=== PATIENT | female | born 1965 | race Caucasian/White ===

== ENCOUNTER 2017-08-11 16:37 | Emergency (ER) | payer BC ==
[~2017-08-11] VITALS: Ht 157.5 cm; Wt 122.9 kg
[2017-08-11 16:43] VITALS: TEMP 37.3; Ht 157.5 cm; Wt 122.9 kg
[2017-08-11 17:36] LABS: BASO % 0.3 %; BASO ABS # 0.03 K/uL (0-0.2); COMPLETE YES; EOS % 2.6 %; HEMATOCRIT 37.2 % (37-47); IG% 0.2 %; LYMPH % 25.9 %; MEAN CELL VOLUME 84.5 fL (80-100); MEAN CORPUSCULAR HEMOGLOBIN 29.3 pg (25-34); MEAN CORPUSCULAR HGB CONC 34.7 g/dl (32-36); MEAN PLATELET VOLUME 9.7 fL (7.4-10.4); MONO % 6.9 %; NEUT % 64.1 %; PLATELET COUNT 252 K/uL (130-400); WHITE BLOOD COUNT 8.88 K/uL (4.8-10.8)
[2017-08-11] MEDS ORDERED: DICY20TA35 PO (17:55)
[2017-08-11] MEDS ORDERED: NXM/40 PO (17:55)
[2017-08-11] MEDS ORDERED: HYDR25TA4 PO (17:55)
[2017-08-11] MEDS ORDERED: ROSU20TA PO (17:55)
[2017-08-11] MEDS ORDERED: LOSA50TA6 PO (17:55)
[2017-08-11] MEDS ORDERED: LEVO5TAB2 PO (17:55)
[2017-08-11] MEDS ORDERED: DIPH25CA65 PO (17:55)
[2017-08-11] MEDS ORDERED: GABA1CAP PO (17:55)
[2017-08-11 17:57] LABS: BUN/CREATININE RATIO 22.1 (10-20); CREATININE 0.73 mg/dl (0.60-1.20); POTASSIUM 3.1 mmol/L (3.5-5.1)
[2017-08-11 19:06] VITALS: BP 168/92; PULSE 95; O2SAT 100
--- NOTE | 2017-08-11 19:06 | DIAGNOSTIC IMAGING REPORT ---
R FOOT MIN 3 VIEWS ROUTINE CLINICAL HISTORY: Right foot pain. Discharge. POSTOP. COMPARISON: None. DISCUSSION: There is a plantar calcaneal spur. There are postsurgical changes involving the second metatarsal neck. 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 There is no air within soft tissues. There are no conventional radiographic findings to indicate acute osteomyelitis. There are no acute fractures. There are degenerative changes most pronounced within the midfoot. IMPRESSION: 1. Postsurgical changes involving the second metatarsal neck. A single screw is visualized 2. No conventional radiographic evidence of acute osteomyelitis 3. No acute fractures Electronically signed by: Femi Dupont M.D. 08/11/2017 7:05 PM Dictated Date/Time: 08/11/2017 7:03 PM
[2017-08-11] MEDS ORDERED: LEVO-366 PO (20:13)
[2017-08-11] MEDS ORDERED: LEVOFLOXACIN 250 MG TAB PO ONE (20:15)
--- NOTE | 2017-08-11 23:13 | EMERGENCY ROOM VISIT NOTE ---
History Report prepared by Laurie: Stefany Moss Under the Supervision of: Dr. José Ansari D.O. First contact with patient: 16:56 Chief Complaint: WOUND DEHISCENCE Stated Complaint: RT FOOT PAIN AND DISCHARGE, POST OP Nursing Triage Summary: Pt reports 2 issues. Left index finger, "I have this bump that's been there 2 months. it keeps scabbing at the cuticle and there is a line that goes up the finger nail". Also reports right foot surgery 9 weeks ago. "it's infected and it continues to get worse."Reports pain, redness and swelling with changing color to toes, yellow/greenish drainage. Has appointment with surgeon on Tuesday. Pt has Neurotransmitter in back. has card with her History of Present Illness The patient is a 52 year old female who presents to the Emergency Room with complaints of a wound dehiscence of her right foot. The patient had surgery on her right foot 9 weeks ago. She had a pin placed and a ligament repaired. She had the surgery done in [place] and is in the area visiting family. She states that the wound has been healing well. About 3-4 days ago it started draining a little more than usual. She reports greenish-yellow discharge. She reports increased redness and swelling. The patient states that she cant bend her toes. She has been taking Tylenol and ibuprofen for pain. She rates her pain as a 5/ 10 in severity. Any pressure on her foot exacerbates her pain. Pt denies headache, change in vision, fevers, chest pain, shortness of breath, nausea, vomiting, diarrhea, pain with urination, and melena. Source of History: patient Onset: 3-4 days ago Position: foot (right) Symptom Intensity: 5/10 Quality: other (wound dehiscence) Timing: worsening Modifying Factors (Worsening): other (pressure on foot) Modifying Factors (Relieving): tylenol, ibuprofen Associated Symptoms: No fevers, No headache, No chest pain, No SOB, No nausea, No vomiting, No melena, No diarrhea, No urinary symptoms Review of Systems See HPI for pertinent positives & negatives. A total of 10 systems reviewed and were otherwise negative. Past Medical & Surgical Medical Problems: (1) Hypertension (2) Kidney stones Family History Cancer Diabetes mellitus FH: gallbladder disease FH: lung disease Heart disease Hypertension Kidney disease Kidney stones Seizures Social History Smoking Status: Never Smoker Smokeless Tobacco Use: No Alcohol Use: none Marital Status: Housing Status: lives with family Current/Historical Medications Scheduled Dicyclomine Hcl (Bentyl), 1 TAB PO QID Diphenhydramine Hcl (Benadryl Allergy), 2 CAP PO HS Esomeprazole Magnesium (Nexium), 40 MG PO BID Gabapentin (Neurontin), 200 MG PO BID Hydrochlorothiazide (Hctz), 25 MG PO DAILY Levocetirizine Dihydrochloride (Xyzal), 1 TAB PO DAILY Levofloxacin (Levaquin), 500 MG PO DAILY Losartan Potassium (Cozaar), 50 MG PO DAILY Rosuvastatin Calcium (Crestor), 20 MG PO DAILY Allergies Coded Allergies: Azithromycin (Unverified Allergy, Severe, HIVES, 08/11/17) Cephalosporins (Unverified Allergy, Severe, HIVES, 08/11/17) Penicillins (Unverified Allergy, Severe, HIVES, 08/11/17) Sulfa Antibiotics (Unverified Allergy, Severe, HIVES, 08/11/17) Sulfamethoxazole w/Trimethoprim (Unverified Allergy, Severe, ANAPHYLAXIS, 08/11/17) Physical Exam Vital Signs Date Time Temp Pulse Resp B/P (MAP) Pulse Ox O2 Delivery O2 Flow Rate FiO2 08/11/17 19:06 95 18 168/92 100 Room Air 08/11/17 16:43 37.3 100 20 166/101 99 Room Air Physical Exam GENERAL: Sitting up in bed, alert, well appearing, well nourished, no distress, non-toxic EYE EXAM: normal conjunctiva. OROPHARYNX: no exudate, no erythema, lips, buccal mucosa, and tongue normal and mucous membranes are moist NECK: supple, no nuchal rigidity, no adenopathy, non-tender LUNGS: Clear to auscultation. Normal chest wall mechanics HEART: no murmurs, S1 normal and S2 normal ABDOMEN: abdomen soft, non-tender, normo-active bowel sounds, no masses, no rebound or guarding. BACK: Back is symmetrical on inspection and there is no deformity, no midline tenderness, no CVA tenderness. SKIN: no rashes and no bruising UPPER EXTREMITIES: upper extremities are grossly normal. LOWER EXTREMITIES: No pitting edema. Right foot second MTP with 1.5cm area by 0.5cm area of open wound without drainage, no surrounding induration or erythema. Calves equal bilaterally. NEURO EXAM: Normal sensorium, cranial nerves II-XII grossly intact, normal speech, no gross weakness of arms, no gross weakness of legs. Medical Decision & Procedures ER Provider Diagnostic Interpretation: Radiology results as stated below per my review and the radiologist's interpretation: R FOOT MIN 3 VIEWS ROUTINE CLINICAL HISTORY: Right foot pain. Discharge. POSTOP. COMPARISON: None. DISCUSSION: There is a plantar calcaneal spur. There are postsurgical changes involving the second metatarsal neck. 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 There is no air within soft tissues. There are no conventional radiographic findings to indicate acute osteomyelitis. There are no acute fractures. There are degenerative changes most pronounced within the midfoot. IMPRESSION: 1. Postsurgical changes involving the second metatarsal neck. A single screw is visualized 2. No conventional radiographic evidence of acute osteomyelitis 3. No acute fractures Electronically signed by: Femi Dupont M.D. 08/11/2017 7:05 PM Dictated Date/Time: 08/11/2017 7:03 PM Laboratory Results 08/11/17 17:20 Red Blood Count 4.40, Mean Corpuscular Volume 84.5, Mean Corpuscular Hemoglobin 29.3, Mean Corpuscular Hemoglobin Concent 34.7, Mean Platelet Volume 9.7, Neutrophils (%) (Auto) 64.1, Lymphocytes (%) (Auto) 25.9, Monocytes (%) (Auto) 6.9, Eosinophils (%) (Auto) 2.6, Basophils (%) (Auto) 0.3, Neutrophils # (Auto) 5.69, Lymphocytes # (Auto) 2.30, Monocytes # (Auto) 0.61, Eosinophils # (Auto) 0.23, Basophils # (Auto) 0.03 08/11/17 17:20 Test 08/11/17 17:20 White Blood Count 8.88 K/uL (4.8-10.8) Red Blood Count 4.40 M/uL (4.2-5.4) Hemoglobin 12.9 g/dL (12.0-16.0) Hematocrit 37.2 % (37-47) Mean Corpuscular Volume 84.5 fL (80-100) Mean Corpuscular Hemoglobin 29.3 pg (25-34) Mean Corpuscular Hemoglobin Concent 34.7 g/dl (32-36) Platelet Count 252 K/uL (130-400) Mean Platelet Volume 9.7 fL (7.4-10.4) Neutrophils (%) (Auto) 64.1 % Lymphocytes (%) (Auto) 25.9 % Monocytes (%) (Auto) 6.9 % Eosinophils (%) (Auto) 2.6 % Basophils (%) (Auto) 0.3 % Neutrophils # (Auto) 5.69 K/uL (1.4-6.5) Lymphocytes # (Auto) 2.30 K/uL (1.2-3.4) Monocytes # (Auto) 0.61 K/uL (0.11-0.59) Eosinophils # (Auto) 0.23 K/uL (0-0.5) Basophils # (Auto) 0.03 K/uL (0-0.2) RDW Standard Deviation 37.2 fL (36.4-46.3) RDW Coefficient of Variation 12.1 % (11.5-14.5) Immature Granulocyte % (Auto) 0.2 % Immature Granulocyte # (Auto) 0.02 K/uL (0.00-0.02) Anion Gap 7.0 mmol/L (3-11) Est Creatinine Clear Calc Drug Dose 115.3 ml/min Estimated GFR () 111.3 Estimated GFR (Non- 96.0 BUN/Creatinine Ratio 22.1 (10-20) Calcium Level 9.0 mg/dl (8.5-10.1) Laboratory results per my review. Medications Administered Medications (Trade) Dose Ordered Sig/Miller Route Start Time Stop Time Status Last Admin Dose Admin Levofloxacin (Levaquin Tab) 500 mg NOW ONCE PO 08/11/17 20:15 08/11/17 20:16 DC 08/11/17 20:16 500 MG ED Course ED COURSE: Vital signs were reviewed and showed tachycardic and hypertensive. The patients medical record was reviewed The above diagnostic studies were performed and reviewed. ED treatments and interventions as stated above. 1658: The patient was evaluated in room C11B. A complete history and physical examination was performed. 2007: Upon reevaluation, the patient is feeling better and resting comfortably. I discussed my findings with the patient and she understands and agrees with the treatment plan. Based on the patients age, coexisting illnesses, exam and lab findings the decision to treat as an outpatient was made. The patient remained stable while under my care. The patient appeared well at the time of discharge. 2015: Levaquin 500 mg PO Medical Decision Differential diagnosis includes etiologies such as cellulitis, abscess, MRSA infection, DVT, necrotizing fasciitis, dermatitis, drug eruption, as well as others were entertained. Patient is a 52-year-old female who presents to ER who apparently scale had surgery on her right foot. Wound was healing but now has a mild discharge on dorsal aspect by her second MTP. On my exam no surrounding cellulitis. No obvious discharge. Wound appears to be healing with a mild dehiscence. No fevers. CBC was unremarkable. BMP shows a mild hypokalemia. X-ray of the foot was negative. Patient was updated regards to her findings. She was placed on Levaquin per her request as she cannot take any other antibiotics and discharge follow-up with her surgeon. Discussed with Pt concerning signs and symptoms to watch out for. Pt was instructed to follow up with their PCP and discussed with the patient their option to return to the ED at anytime for persistent or worsening symptoms. The appropriate anticipatory guidance and out- patient management, including indications for return to the emergency department , were explained at length to the patient and understood. Medication Reconcilliation Current Medication List: was personally reviewed by me Blood Pressure Screening Patient's blood pressure: Elevated blood pressure Blood pressure disposition: Elevated BP felt to be situational Impression Primary Impression: Cellulitis Additional Impression: Hypokalemia Scribe Attestation The scribe's documentation has been prepared under my direction and personally reviewed by me in its entirety. I confirm that the note above accurately reflects all work, treatment, procedures, and medical decision making performed by me. Departure Information Dispostion Home / Self-Care Prescriptions Levofloxacin (Levaquin) 500 Mg Tab 500 MG PO DAILY for 9 Days, TAB Prov: José Ansari, DO 08/11/17 Referrals No Doctor, Assigned (PCP) Forms HOME CARE DOCUMENTATION FORM, IMPORTANT VISIT INFORMATION, WORK / SCHOOL INSTRUCTIONS Patient Instructions Cellulitis - [facility], [facility], [facility] Additional Instructions Please follow up with your primary care doctor with in the next 24 hours. Any worsening of your symptoms, please return to the ED immediately. This includes any fevers greater than 100.4, worsening pain, chest pain, shortness breath, surrounding redness, increased discharge, persistent nausea, vomiting, unable to eat or drink, or any other concerning signs or symptoms from your standpoint. Please take the antibiotics as prescribed. Problem Qualifiers Primary Impression: Cellulitis Site of cellulitis: unspecified site Qualified Codes: L03.90 - Cellulitis, unspecified
== END 2017-08-11 20:23 | disposition home or self-care (01) ==
LOC: C.EDB 16:39 → C.EDC 20:23
DX: L03.115 Cellulitis of right lower limb (principal); E87.6 Hypokalemia; Z98.890 Other specified postprocedural states; I10 Essential (primary) hypertension; Z87.442 Personal history of urinary calculi; Z80.9 Family history of malignant neoplasm, unspecified; Z83.3 Family history of diabetes mellitus; Z83.79 Family history of other diseases of the digestive system; Z82.49 Family history of ischemic heart disease and other diseases of the circulatory system; Z84.1 Family history of disorders of kidney and ureter; Z79.899 Other long term (current) drug therapy